=== PATIENT | male | born 1995 | race Caucasian/White ===

== ENCOUNTER 2023-09-16 11:38 | Day surgery (SDC) | payer BC ==
[2023-09-16] MEDS ORDERED: Iohexol 300 - 100 ML VIAL IV ONE (13:56)
[2023-09-16] MEDS ORDERED: Glycopyrrolate 0.2 MG/ML 1 ML VIAL ONE (14:53)
[2023-09-16] MEDS ORDERED: Ondansetron 4 MG/2 ML VIAL ONE (14:53)
[2023-09-16] MEDS ORDERED: fentaNYL 50 MCG/ML 2 ML VIAL ONE ×2 (14:53→15:46)
[2023-09-16] MEDS ORDERED: dexAMETHasone 10 MG/ML VIAL ONE (14:53)
[2023-09-16] MEDS ORDERED: Succinylcholine PF 200 MG/10 ML SYRINGE IV ONE (14:53)
[2023-09-16] MEDS ORDERED: Lidocaine PF 2% (20 MG/ML) 5 ML VIAL ONE (14:53)
[2023-09-16] MEDS ORDERED: Rocuronium 50 MG/5 ML Multi-Dose VIAL ONE (15:13)
== END 2023-09-16 18:35 | disposition home or self-care (01) ==
LOC: COL.ER 11:38 → SDCO 15:00 → COL.ER 15:00 → SURG 15:00 → SDCO 18:35
DX: K35.80 Unspecified acute appendicitis (principal)
CPT/HCPCS: J1100; J2405; J2704; J3010; Q9967